=== PATIENT | male | born 2000 | race Caucasian/White ===

== ENCOUNTER 2018-02-27 13:10 | Outpatient (REF) | payer BC, SELFPAY ==
[2018-03-02 10:52] LABS: HIV-1/2 Ag & Ab Screen Negative (NEGAT)
[2018-03-04 09:47] LABS: Syphilis Serology (RPR) Negative (Negative)
== END 2018-02-27 13:30 ==
LOC: NCHCN 13:10
PROVIDERS: PCP Internal Medicine; Visit Provider Nurse Practitioner
DX: Z11.3 Encounter for screening for infections with a predominantly sexual mode of transmission (principal); Z11.4 Encounter for screening for human immunodeficiency virus [HIV]
CPT/HCPCS: 87389; 86592

== ENCOUNTER 2018-03-01 11:30 | Outpatient (REF) | payer BC, SELFPAY ==
[2018-03-04 14:40] LABS: Chlamydia Result Negative; GC Result Negative
== END 2018-03-01 11:50 ==
LOC: NCHCN 11:30
PROVIDERS: PCP Internal Medicine; Visit Provider Nurse Practitioner
DX: Z11.3 Encounter for screening for infections with a predominantly sexual mode of transmission (principal)
CPT/HCPCS: 87491; 87591

== ENCOUNTER 2020-05-03 16:29 | Outpatient (REF) | payer BC, SELFPAY ==
[2020-05-03 20:42] LABS: Abs Immature Grans 0.01 10^3/uL (0.0-0.06); Absolute Basophil Count 0.04 10^3/uL (0.0-0.2); Absolute Eosinophil Count 0.16 10^3/uL (0.0-0.7); Absolute Lymphocyte Count 2.03 10^3/uL (1.2-3.4); Absolute Monocyte Count 0.56 10^3/uL (0.1-0.8); Absolute Neutrophil Count 4.21 10^3/uL (1.2-6.7); Basophils % 0.6; Eosinophils % 2.3; HCT 46.3 % (40.0-50.0); HGB 15.7 g/dL (13.5-17.5); Immature Grans % 0.1; MCH 29.9 pg (27.0-33.0); MCHC 33.9 % (32.0-36.0); MCV 88.2 fL (80-95); MPV 10.7 fL (8.0-11.0); Nucleated RBC 0 %; Platelet Count 238 10^3/uL (130-400); RBC 5.25 10^6/uL (4.36-5.78); RDW 11.5 % (11.8-14.1); RDW-SD 37.1 fL; WBC 7.01 10^3/uL (4.4-10.8)
[2020-05-03 21:03] LABS: Anion Gap 6.4 mmol/L (3-11); BUN 14 mg/dL (7-18); CO2 27.6 mmol/L (21.0-32.0); CREATININE 0.91 mg/dL (0.70-1.30); Calcium 9.3 mg/dL (8.5-10.1); Chloride 103 mmol/L (98-107); Glucose 86 mg/dL (74-106); Sodium 137 mmol/L (136-145); TSH (W/Ref FT4) 1.59 uIU/mL (0.36-3.74)
== END 2020-05-03 16:49 ==
LOC: NCHCN 16:29
PROVIDERS: PCP Internal Medicine; Visit Provider Family Medicine
DX: R07.89 Other chest pain (principal); F41.9 Anxiety disorder, unspecified
CPT/HCPCS: 80048; 84443; 85025